=== PATIENT | male | born 1945 | race Caucasian/White ===

== ENCOUNTER 2024-06-22 07:19 | Outpatient (CLI) | payer MEDICARE, BC ==
[~2024-06-22] VITALS: Ht 177.8 cm; Wt 88.1 kg
[~2024-06-22 07:19] MED LIST: ACTOS 15MG TAB15 MG PO; ALDACTONE50 MG PO; ASPIRIN E.C. 8181 MG PO; CENTRUM SILVER1 CTB PO; GLUCOPHAGE500 MG/TAB PO; GLUCOTROL XL10 MG PO; IRON TABLETS325 MG PO; K-TAB20 PO; LASIX 20MG TABL20 MG PO; LEVEMIR FLEX100 U/ML SQ; PRINIVIL2.5 MG PO; SYNTHROID0.112 MG/T PO; ZOCOR 20MG20 MG PO
[2024-06-22] MEDS ORDERED: BUMEX0.5 MG PO (08:08)
[2024-06-22] MEDS ORDERED: LOPRESSOR 225 MG/TAB PO (08:09)
[2024-06-22] MEDS ORDERED: VITAMIN D362.5 MC1 PO (08:11)
[2024-06-22 08:39] VITALS: BP 100/60; PULSE 57; TEMP 97.6
[2024-06-22 09:40] LABS: BASO # 0.1 K/mm3 (0.0-0.2); BASO % 0.8 % (0.0-2.0); EOS # 0.2 K/mm3 (0.0-0.7); EOS % 3.1 % (0.0-4.0); GRAN # 4.6 K/mm3 (1.4-6.5); GRAN % 64.7 % (42.2-75.2); HEMATOCRIT 30.4 % (42.0-52.0); HEMOGLOBIN 9.9 g/dl (13.5-18.0); LYMPH # 1.1 K/mm3 (1.2-3.4); MEAN CELL VOLUME 96 fl (80.0-100.0); MEAN CORPUSCULAR HEMOGLOBIN 31 pg (27-31); MEAN CORPUSCULAR HGB CONC 33 g/dl (33.0-37.0); MEAN PLATELET VOLUME 10.6 fl (7.4-10.4); MONO # 1.1 K/mm3 (0.1-0.6); PLATELET COUNT 137 K/mm3 (130-400); RED BLOOD COUNT 3.17 M/mm3 (4.20-5.60); REDCELL DISTRIBUTION WIDTH-CV 19.3 % (11.5-14.5)
[2024-06-22 09:50] VITALS: BP 96/60; PULSE 58; TEMP 98.1
[2024-06-22 10:00] VITALS: BP 102/62; PULSE 58
[2024-06-22 10:06] LABS: INR 1.3 (0.8-3.0); PROTHROMBIN TIME 14.1 SECONDS (9.7-12.8)
--- NOTE | 2024-06-22 12:01 | NUR ---
0950- PT BACK TO [facility] VIA CART. MONITORS AND ALARMS SET. CALL LIGHT WITHIN REACH. REPRT RECEIVED FROM NUPUR SANTORO. PT ALERT AND ORIENTED. PT SAYS THAT HE DOES NOT WANT ANY FOOD OR WATER.. PT DENIES ANY PAIN OR NAUSEA. 1000- PT RESTING IN BED. NO COMPLICATIONS NOTED. 1015- PT AMBULATED TO BATHROOM. WAITING ON CHEST X-RAY RESULTS. 1030- DISCHARGE INSTRUCTIONS GIVEN TO PT. ALL QUESTIONS ANSWERED. 1115- CALLED DR. CHOU ABOUT CHEST X-RAY. HE REVIEWED IT AND SAID HE COULD BE DISCHARGED. 1120- PT DID NOT RECEIVE ANY ANESTHESIA SO PATIENT WALKED OUT WITH .
== END 2024-06-22 11:20 | disposition home or self-care (01) ==
LOC: SDCO 07:19
PROVIDERS: Internal Medicine Pulmonary Disease
DX: J90 Pleural effusion, not elsewhere classified (principal); J93.9 Pneumothorax, unspecified; J98.11 Atelectasis; J47.9 Bronchiectasis, uncomplicated; F17.210 Nicotine dependence, cigarettes, uncomplicated
CPT/HCPCS: 19804